=== PATIENT | male | born 1955 | race Caucasian/White ===

== ENCOUNTER 2021-09-23 14:28 | Outpatient (RCR) | payer MEDICARE ==
[~2021-09-23 14:28] MED LIST: ASPI81TA26 PO; ATOR40TA75 PO; FISH100049 PO; LOSA100T5 PO; VITA100L PO
== END 2021-10-01 ==
LOC: M PT 14:28
PROVIDERS: ATTEND Orthopaedic Surgery
DX: M16.12 Unilateral primary osteoarthritis, left hip (principal)

== ENCOUNTER 2021-12-31 09:24 | Outpatient (RCR) | payer MEDICARE | END 2022-01-01 | LOC: M PT 09:24 | PROVIDERS: ATTEND Orthopaedic Surgery | DX: M16.12 Unilateral primary osteoarthritis, left hip (principal); M25.552 Pain in left hip ==

== ENCOUNTER 2022-01-21 09:30 | Outpatient (RCR) | payer MEDICARE | END 2022-02-01 | LOC: M PT 09:30 | PROVIDERS: ATTEND Orthopaedic Surgery | DX: M25.552 Pain in left hip (principal) ==

== ENCOUNTER → 2024-01-16 | Outpatient (CLI) | payer OTHER | LOC: M PLAIMG 09:31 | PROVIDERS: ATTEND Internal Medicine Cardiovascular Disease | DX: R01.1 Cardiac murmur, unspecified (principal); I50.22 Chronic systolic (congestive) heart failure; I08.1 Rheumatic disorders of both mitral and tricuspid valves ==

== ENCOUNTER → 2025-01-21 | Outpatient (CLI) | payer MEDICARE | LOC: M EKG 09:55 | PROVIDERS: ATTEND Physician Assistant | DX: I45.3 Trifascicular block (principal) ==